=== PATIENT | male | born 1945 | race African-American/Black ===

== ENCOUNTER 2018-04-07 07:14 | Emergency (ER) | payer SELFPAY ==
[~2018-04-07] VITALS: Ht 170.2 cm; Wt 57.6 kg
--- NOTE | 2018-04-07 07:15 | NUR ---
PT BIB [facility] WITH A C/O RT HAND FINGER PAIN W/A DIRTY NAIL. PT IS ALSO C/O CHRONIC BACK PAIN FROM SCULIOSIS. PT WAS TAKEN TO BED NUMBER #15. PT'S WALKER IS AT THE BEDSIDE. PT IS AA&O X 4.
[2018-04-07 07:20] VITALS: BP 132/89
[2018-04-07] MEDS ORDERED: ACETAMINOPHEN ES 500 MG TABLET PO ONE (07:30)
[2018-04-07] MEDS ORDERED: ACETAMINOPHEN ES 500 MG TABLET ONE (07:32)
== END 2018-04-07 07:43 | disposition home or self-care (01) ==
LOC: ER 07:15
DX: Z13.89 Encounter for screening for other disorder (principal); H40.9 Unspecified glaucoma; F31.9 Bipolar disorder, unspecified; M41.9 Scoliosis, unspecified; Z85.118 Personal history of other malignant neoplasm of bronchus and lung; Z98.890 Other specified postprocedural states; Z88.0 Allergy status to penicillin
CPT/HCPCS: 99283; A4606; Z7610